=== PATIENT | female | born 1950 | race American Indian/Alaskan Native ===

== ENCOUNTER 2017-03-21 21:54 | Emergency (ER) | payer OTHER ==
[2017-03-21 22:39] VITALS: BP 143/90
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
== END 2017-03-22 05:00 | disposition home or self-care (01) ==
LOC: ED 21:54
DX: Z04.1 Encounter for examination and observation following transport accident (principal); I10 Essential (primary) hypertension; E11.9 Type 2 diabetes mellitus without complications
CPT/HCPCS: 99282

== ENCOUNTER 2019-01-11 08:56 | Day surgery (SDC) | payer MEDICARE, OTHER ==
[~2019-01-11 08:56] MED LIST: NACL 0.9% 1000 ML 1,000 ML IV SCH
--- NOTE | 2019-01-11 10:16 | Anesthesia Day of Surgery ---
Anesthesia Day of Surgery - Day of Surgery Patient Examined: Yes Patient H&P Reviewed: Yes Patient is NPO: Yes
--- NOTE | 2019-01-11 10:17 | Anesthesia Consultation ---
Anesthesia Consult and Med Hx Date of service: 01/11/19 - Airway Anesthetic Teeth Evaluation: Good, Dentures ROM Head & Neck: Adequate Mental/Hyoid Distance: Adequate Mallampati Class: Class II Intubation Access Assessment: Probably Good - Pre-Operative Health Status ASA Pre-Surgery Classification: ASA2 Proposed Anesthetic Plan: MAC - Cardiovascular System Hx Hypertension: Yes - Central Nervous System Hx Back Pain: Yes - Endocrine Hx Non-Insulin Dependent Diabetes: Yes (FBS 93)
[2019-01-11] MEDS ORDERED: DIPRIVAN 10 MG/ML IV ONE ×2 (12:33)
[2019-01-11 13:28] VITALS: BP 147/72
--- NOTE | 2019-01-11 14:08 | Operative Report ---
Operative Report Operative Report: Date of procedure: 06/08/2018 Procedure: Colonoscopy with Multiple Hot Biopsy Polypectomies, Ablation of colon polyp Base and submucosal injection. Attending physician: Richi Bernardo MD Medical Staff Director: Richi Bernardo MD Indication: Patient is a 68-year-old female who presents for screening colonoscopy for past history of colon polyps. This colonoscopy serves to evaluate patient so that treatment may be directed based on the findings. Consent: Informed consent was obtained after advising the patient and family regarding nature of this procedure, its indications, potential benefits as well as possible complications including but not limited to bleeding perforation and adverse reaction to medication, infection as well as other cardiopulmonary complications. An informed written and verbal consent was then obtained after due opportunity was provided for questions and answers. Monitoring: Patient was monitored continuously with pulse oximetry and electrocardiographic recordings as well as blood pressure recordings. Vital signs remained stable throughout this procedure with no untoward events. Preoperative assessment: Patient was assessed immediately prior to this procedure for capacity to tolerate monitored anesthesia care and moderate sedation as well as general anesthesia. Patient's ASA classification is 3, Mallampati class is 2, Hyomental distance is 3. Instrument: Olympus video colonoscope CF HQ 190 L Medications: Propofol given intravenously in divided doses. For details please refer to anesthesia records. Description of procedure: Patient was placed in the left lateral decubitus position after achieving sedation, a digital rectal examination was performed following which the colonoscope was introduced into the anal verge and advanced to the cecum which was identified by the cecal valve, the appendiceal orifice, as well as by the cecal strap and direct transillumination. The colonoscope was subsequently withdrawn with careful inspection of all mucosal surfaces. Patient tolerated this procedure well and was subsequently taken to the recovery room. The following findings were noted. Findings: The patient had densely inherent thick liquid stool in sections of the colon which was irrigated as much as possible. There was extensive diverticul osis of the sigmoid and descending colon. In the sigmoid colon, there was an irregular mucosal pattern which was elevated with submucosal injection of saline and however on further inspection appeared relatively normal. There were 2 flat 5 mm flat polyps which were removed by hot biopsy polypectomy and retrieved. On a retroflexed view of the anal verge, patient had internal hemorrhoids. Impression: Sigmoid colon status post submucosal injection. Multiple sigmoid colon polyps status post hot biopsy polypectomy. Diverticular disease of the colon. Internal hemorrhoids. Plan: Follow pathology report. High-fiber diet. Repeat colonoscopy in 5 years
--- NOTE | 2019-01-11 14:09 | Discharge Summary ---
Short Stay Discharge Plan Activity: advance as tolerated Weight Bearing Status: Weight Bear as Tolerated Diet: regular Additional Instructions: Post Sedation D/C Instructions When you return home you may resume your regular diet unless otherwise directed. -Go directly home from the hospital and rest quietly. You may resume normal activities tomorrow. -Do NOT drive, return to work, operate any machinery or make any important personal or business decisions today. -Do NOT drink any alcohol or take nerve or sleeping drugs. They add to the effects of the medicine still present in your body. No Aspirin or Aspirin products for 4 days. Follow up with: NAVEEN KOLB MD [Primary Care Provider] - 7 Days
--- NOTE | 2019-01-11 17:20 | Operative Report ---
Operative Report Operative Report: Date of procedure: 01/11/2019 Procedure: Colonoscopy with Multiple Hot Biopsy Polypectomies, Ablation of colon polyp Base and submucosal injection. Attending physician: Richi Bernardo MD Tie Hacker: Richi Bernardo MD Indication: Patient is a 68-year-old female who presents for screening colonoscopy for past history of colon polyps. This colonoscopy serves to evaluate patient so that treatment may be directed based on the findings. Consent: Informed consent was obtained after advising the patient and family regarding nature of this procedure, its indications, potential benefits as well as possible complications including but not limited to bleeding perforation and adverse reaction to medication, infection as well as other cardiopulmonary complications. An informed written and verbal consent was then obtained after due opportunity was provided for questions and answers. Monitoring: Patient was monitored continuously with pulse oximetry and electrocardiographic recordings as well as blood pressure recordings. Vital signs remained stable throughout this procedure with no untoward events. Preoperative assessment: Patient was assessed immediately prior to this procedure for capacity to tolerate monitored anesthesia care and moderate sedation as well as general anesthesia. Patient's ASA classification is 3, Mallampati class is 2, Hyomental distance is 3. Instrument: Olympus video colonoscope CF HQ 190 L Medications: Propofol given intravenously in divided doses. For details please refer to anesthesia records. Description of procedure: Patient was placed in the left lateral decubitus position after achieving sedation, a digital rectal examination was performed following which the colonoscope was introduced into the anal verge and advanced to the cecum which was identified by the cecal valve, the appendiceal orifice, as well as by the cecal strap and direct transillumination. The colonoscope was subsequently withdrawn with careful inspection of all mucosal surfaces. Patient tolerated this procedure well and was subsequently taken to the recovery room. The following findings were noted. Findings: The patient had densely inherent thick liquid stool in sections of the colon which was irrigated as much as possible. There was extensive diverticulosis of the sigmoid and descending colon. In the sigmoid colon, there was an irregular mucosal pattern which was elevated with submucosal injection of saline and however on further inspection appeared relatively normal. There were 2 flat 5 mm flat polyps which were removed by hot biopsy polypectomy and retrieved. On a retroflexed view of the anal verge, patient had internal hemorrhoids. Impression: Sigmoid colon status post submucosal injection. Multiple sigmoid colon polyps status post hot biopsy polypectomy. Diverticular disease of the colon. Internal hemorrhoids. Plan: Follow pathology report. High-fiber diet. Repeat colonoscopy in 5 years
== END 2019-01-11 08:57 | disposition home or self-care (01) ==
LOC: GIO 08:56
PROVIDERS: ATTEND Internal Medicine Gastroenterology
DX: D12.5 Benign neoplasm of sigmoid colon (principal); K57.30 Diverticulosis of large intestine without perforation or abscess without bleeding; K64.8 Other hemorrhoids; I10 Essential (primary) hypertension; E11.9 Type 2 diabetes mellitus without complications; F32.9 Major depressive disorder, single episode, unspecified; Z79.899 Other long term (current) drug therapy; Z79.84 Long term (current) use of oral hypoglycemic drugs
CPT/HCPCS: 45381; 45384; 82962; 88305; J2704; J7030

== ENCOUNTER 2019-03-15 09:20 | Day surgery (SDC) | payer MEDICARE, OTHER ==
--- NOTE | 2019-03-15 11:43 | Anesthesia Consultation ---
Anesthesia Consult and Med Hx Date of service: 03/15/19 - Airway Anesthetic Teeth Evaluation: Dentures ROM Head & Neck: Adequate Mental/Hyoid Distance: Adequate Mallampati Class: Class II Intubation Access Assessment: Good - Pulmonary Exam CTA: Yes - Cardiac Exam Cardiac Exam: RRR - Pre-Operative Health Status ASA Pre-Surgery Classification: ASA2 Proposed Anesthetic Plan: MAC - Cardiovascular System Hx Hypertension: Yes - Central Nervous System Hx Back Pain: Yes - Endocrine Hx Non-Insulin Dependent Diabetes: Yes (FBS 93)
--- NOTE | 2019-03-15 11:43 | Anesthesia Day of Surgery ---
Anesthesia Day of Surgery - Day of Surgery Patient Examined: Yes Patient H&P Reviewed: Yes Patient is NPO: Yes
[2019-03-15] MEDS ORDERED: DIPRIVAN 10 MG/ML IV ONE ×2 (13:25)
--- NOTE | 2019-03-15 13:50 | Operative Report ---
Operative Report Operative Report: Operative Report: Date of procedure: 03/15/2019 Procedure: Esophagogastroduodenoscopy with multiple mucosal biopsies. Attending physician: Richi Bernardo MD Sandwich Wrapper: Richi Bernardo MD Indication: Patient is a 68 -year-old female who presented with a history of recurrent epigastric pain. The patient has a history of using nonsteroidal anti-inflammatory medications. An upper endoscopy is done to assess patient, so that treatment may be directed based on the findings. Consent: Informed consent was obtained after advising the patient and family regarding nature of this procedure, its indications, potential benefits as well as possible complications including but not limited to bleeding perforation and adverse reaction to medication, infection as well as other cardiopulmonary complications. An informed written and verbal consent was then obtained after due opportunity was provided for questions and answers. Monitoring: Patient was monitored continuously with pulse oximetry and electrocardiographic recordings as well as blood pressure recordings. Vital signs remained stable throughout this procedure with no untoward events. Preoperative assessment: Patient was assessed immediately prior to this procedure for capacity to tolerate monitored anesthesia care and moderate sedation as well as general anesthesia. Patient's ASA classification is 2, Mallampati class is 2, Hyomental distance is 3. Instrument: Olympus video endoscope: GIF [id number] Medications: Propofol given intravenously in divided doses. For details please refer to anesthesia records. Description of procedure: Patient was placed in the left lateral decubitus position after achieving sedation, the endoscope was introduced into the esophagus under direct vision. It was then advanced beyond the esophagus into the stomach and then beyond the stomach into the second portion of the duodenum. It was subsequently withdrawn with careful inspection of all mucosal surfaces with the following findings. Findings: The esophagus was normal. The Z line was irregular. Patient had multiple gastric erosions with erythema seen. Gastric antral biopsies were obtained for histopathology. In the duodenum patient had an early stricture formation in the distal aspect of the duodenal bulb. There were multiple erosions seen in the duodenal bulb. These changes are likely due to use of nonsteroidals. There were no discrete ulcers seen. The endoscope was removed after the examination . Impression: Irregular Z line . Gastric antral erythema with erosions. Duodenal bulb erosions with early stricture formation. Plan: Continue treatment with proton pump inhibitors. Follow pathology report and direct additional treatment based on the pathology report.
--- NOTE | 2019-03-15 13:50 | Discharge Summary ---
Short Stay Discharge Plan Activity: advance as tolerated Weight Bearing Status: Weight Bear as Tolerated Diet: regular Follow up with: NAVEEN KOLB MD [Primary Care Provider] - 7 Days
[2019-03-15 14:20] VITALS: BP 138/75
== END 2019-03-15 09:21 | disposition home or self-care (01) ==
LOC: GIO 09:20
PROVIDERS: ATTEND Internal Medicine Gastroenterology
DX: K20.9 Esophagitis, unspecified (principal); K31.5 Obstruction of duodenum; I10 Essential (primary) hypertension; E11.9 Type 2 diabetes mellitus without complications; F32.9 Major depressive disorder, single episode, unspecified; Z79.899 Other long term (current) drug therapy; Z79.84 Long term (current) use of oral hypoglycemic drugs
CPT/HCPCS: 43239; 82962; 88305; 88342; J2704; J7030